=== PATIENT | male | born 1995 | race Caucasian/White ===

== ENCOUNTER → 2023-12-04 10:31 | Outpatient (REF) | payer OTHER, SELFPAY ==
[2023-12-06 14:25] LABS: Quantiferon Mitogen minus NIL 9.94 IU/mL; Quantiferon NIL 0.02 IU/mL; Quantiferon Plus TB1 minus NIL 0.04 IU/mL (0.00-0.34); Quantiferon Plus TB2 minus NIL 0.04 IU/mL (0.00-0.34); Quantiferon TB Gold Plus Negative (Negative)
== END ==
LOC: REG 10:31
PROVIDERS: ATTENDING PHYSICIAN Nurse Practitioner Family; FAMILY PHYSICIAN Nurse Practitioner Family
DX: Z23 Encounter for immunization (principal)
CPT/HCPCS: 86480